=== PATIENT | female | born 1980 | race Caucasian/White ===

== ENCOUNTER 2016-11-28 07:00 | Emergency (ER) | payer OTHER ==
--- NOTE | 2016-11-28 07:22 | Emergency Department Record ---
History of Present Illness - General Chief complaint: Extremity Problem Stated complaint: Injured Pinky finger Time Seen by Provider: 11/28/16 07:14 Source: Patient Mode of Arrival: Ambulatory Limitations: No limitations - History of Present Illness Initial comments: The patient jammed her R 5th finger 3.5 weeks ago playing basketball and it has been painful since. It did swell initially and is slightly less swollen now. She is still having pain with ROM. MD Complaint: Extremity pain Onset/Timin -: Week(s) Location: Right, Hand History of Same: No Radiation: Proximal Severity scale (1-10): 3 Quality: Aching Consistency: Intermittent Improves with: Immobilization Worsens with: Other Associated Symptoms: Denies other symptoms - Related Data Home Medications Medication Instructions Recorded Confirmed Last Taken No Home Med [NO HOME MEDS] 11/28/16 11/28/16 Unknown Allergies Allergy/AdvReac Type Severity Reaction Status Date / Time codeine Allergy Intermediate ITCHING Verified 11/28/16 07:10 sumatriptan [From Imitrex] Allergy Intermediate throat Verified 11/28/16 07:10 swelling Travel Screening - Travel/Exposure Within Last 30 Days Have you traveled within the last 30 days?: No Review of Systems Constitutional: Denies: Chills, Fever Past Medical History - SOCIAL HISTORY Smoking Status: Never smoker Alcohol Use: Occassional Drug Use: None - RESPIRATORY Hx Respiratory Disorders: No - CARDIOVASCULAR Hx Cardio Disorders: No - NEURO Hx Neuro Disorders: No - GI Hx GI Disorders: No - Hx Genitourinary Disorders: No - ENDOCRINE Hx Endocrine Disorders: No - MUSCULOSKELETAL Hx Musculoskeletal Disorders: No - PSYCH Hx Psych Problems: No - HEMATOLOGY/ONCOLOGY Hx Hematology/Oncology Disorders: No Family Medical History Any Significant Family History?: No Physical Exam - General General Appearance: Alert, Cooperative, No acute distress - Head Head exam: Atraumatic, Normocephalic, Normal inspection - Eye Eye exam: Normal appearance, PERRL - Extremities Extremities exam: Full ROM, Normal capillary refill, Tenderness (There is diffuse mild tenderness and mild edema to the R 5th finger. There is good flexion with mild pain and no malrotation.). negative: Normal inspection, Joint swelling Course Vital Signs 11/28/16 07:08 Temperature 98.6 F Pulse Rate [ 87 Pulse Ox Probe] Respiratory 18 Rate Blood Pressure 154/96 [Left Arm] Pulse Ox 96 - Reevaluation(s) Reevaluation #1: I did discuss the plan with the patient. The xrays weber appear normal. Due to the fact the initial injury was almost a month ago the patient is to use an OTC pain medicine and see her PCP if not better in a week. 11/28/16 07:39 Medical Decision Making - Data Complexity MDM Data: X-Ray Ordered and/or Reviewed - Radiology Data Radiology results: Image reviewed (R 5th finger: Neg.) Disposition Disposition: Discharge Clinical Impression: Sprain of finger, right Qualifiers: Encounter type: initial encounter Qualified Code(s): S63.619A - Unspecified sprain of unspecified finger, initial encounter Disposition: Home, Self-Care Condition: (1) Good Instructions: Finger Sprain (ED) Additional Instructions: Please use Tylenol or Motrin for pain. Please see your PCP if not better in a week. Return to the ER if worse. Forms: Patient Portal Access Time of Disposition: 07:37
== END 2016-11-28 08:07 | disposition home or self-care (01) ==
LOC: ER 07:00
DX: S63.616A Unspecified sprain of right little finger, initial encounter (principal); W23.0XXA Caught, crushed, jammed, or pinched between moving objects, initial encounter; Y93.67 Activity, basketball
CPT/HCPCS: 73140; 99283